=== PATIENT | female | born 1990 | race African-American/Black ===

== ENCOUNTER 2017-01-06 10:28 | Emergency (ER) | payer OTHER, SELFPAY ==
--- NOTE | 2017-01-06 19:39 | CT ---
CT CERVICAL SPINE 01/06/[address] of the cervical spine was performed for evaluation following trauma. Axial slices were acquired, then coronal and sagittal reconstructions were done. No fracture, disloc ation or disc space narrowing was seen. The C1 to dens distance is normal and the soft tissues are n ormal in thickness. There is loss of the normal cervical lordosis which may be due to muscle spasm. There is no evidence of disc abnormality, foraminal stenosis, or central canal stenosis at any level . IMPRESSION: Mild straightening of the cervical spine. Exam otherwise unremarkable. POS: HOME
== END 2017-01-06 11:19 | disposition home or self-care (01) ==
LOC: BURERS 10:28
DX: M50.10 Cervical disc disorder with radiculopathy, unspecified cervical region (principal); V43.52XA Car driver injured in collision with other type car in traffic accident, initial encounter; W22.11XA Striking against or struck by driver side automobile airbag, initial encounter
CPT/HCPCS: 72125

== ENCOUNTER 2018-05-26 15:38 | Emergency (ER) | payer OTHER, SELFPAY ==
[2018-05-26] MEDS ORDERED: Ibuprofen 200 MG TAB ONE (15:52)
[2018-05-26] MEDS ORDERED: Guaifenesin DM 100-10/5 ML UDCUP ONE (15:53)
== END 2018-05-26 16:26 | disposition home or self-care (01) ==
LOC: BURERS 15:38
DX: J11.1 Influenza due to unidentified influenza virus with other respiratory manifestations (principal); F17.210 Nicotine dependence, cigarettes, uncomplicated
CPT/HCPCS: 87804; 99283

== ENCOUNTER 2019-04-26 10:15 | Emergency (ER) | payer SELFPAY | END 2019-04-26 10:37 | disposition home or self-care (01) | LOC: BURERS 10:15 | DX: K04.7 Periapical abscess without sinus (principal); F17.210 Nicotine dependence, cigarettes, uncomplicated | CPT/HCPCS: 99282 ==

== ENCOUNTER 2021-10-20 21:58 | Emergency (ER) | payer OTHER, SELFPAY | END 2021-10-20 22:17 | disposition home or self-care (01) | LOC: BURERS 21:58 | DX: U07.1 COVID-19 (principal); F17.210 Nicotine dependence, cigarettes, uncomplicated | CPT/HCPCS: 99283; U0003; U0005 ==

== ENCOUNTER 2022-07-05 16:01 | Emergency (ER) | payer OTHER ==
[2022-07-05] MEDS ORDERED: Lidocaine 1% PF 5 ML VIAL ONE (16:12)
[2022-07-05] MEDS ORDERED: Penicillin V Potassium 250 MG TAB ONE (16:32)
== END 2022-07-05 16:35 | disposition home or self-care (01) ==
LOC: BURERS 16:01
DX: K04.7 Periapical abscess without sinus (principal); F17.290 Nicotine dependence, other tobacco product, uncomplicated
CPT/HCPCS: 64400

== ENCOUNTER 2022-08-23 07:55 | Emergency (ER) | payer OTHER | END 2022-08-23 08:35 | disposition home or self-care (01) | LOC: BURERS 07:55 | DX: F41.9 Anxiety disorder, unspecified (principal); F17.290 Nicotine dependence, other tobacco product, uncomplicated ==

== ENCOUNTER 2023-12-23 03:07 | Emergency (ER) | payer OTHER | END 2023-12-23 04:09 | disposition home or self-care (01) | LOC: BURERS 03:07 | DX: H61.23 Impacted cerumen, bilateral (principal); R09.81 Nasal congestion; Z87.891 Personal history of nicotine dependence | CPT/HCPCS: 99283 ==